=== PATIENT | male | born 1960 | race Caucasian/White ===

== ENCOUNTER 2018-04-22 06:58 | Day surgery (SDC) | payer OTHER, MEDICAID ==
[~2018-04-22 06:58] MED LIST: SOD CHLORIDE 0.9% 1,000 ML IV
[2018-04-22] MEDS ORDERED: PROPOFOL 200 MG INJ (07:00)
[2018-04-22] MEDS ORDERED: ONDANSETRON 4 MG INJ (07:00)
[2018-04-22] MEDS ORDERED: SUCCINYLCHOLINE CHLORIDE 100 MG/5 ML SYG IV (07:00)
[2018-04-22] MEDS ORDERED: LIDOCAINE 2% (SDV) 5 ML INJ (07:00)
[2018-04-22] MEDS ORDERED: ROCURONIUM 50 MG INJ (07:00)
[2018-04-22] MEDS: CEFAZOLIN 2 GM/50 ML (PMX) 50 ML IVPB ×2 (08:00→12:15)
[2018-04-22] MEDS: SOD CHLORIDE 0.9% 1,000 ML IV (08:00)
[2018-04-22] MEDS ORDERED: FENTAnyl 50 MCG/ML VIAL (09:13)
[2018-04-22] MEDS ORDERED: MIDAZOLAM 1 MG/ML 2 ML INJ (09:14)
[2018-04-22] MEDS ORDERED: CEFAZOLIN 1 GM INJ (09:15)
[2018-04-22] MEDS ORDERED: ROPIVACAINE 0.5 % 30 ML VIAL (09:16)
[2018-04-22] MEDS ORDERED: METOCLOPRAMIDE 10 MG INJ (09:16)
[2018-04-22] MEDS ORDERED: EPINEPHrine 1 MG INJ (09:19)
[2018-04-22 09:23] LABS: ADD MAN DIFF? NO
[2018-04-22 09:26] LABS: WHITE BLOOD COUNT 8.1 10^3/ul (4.8-10.8)
[2018-04-22 09:26] LABS: BASOPHILS % 0.5 % (0.0-2.0); EOSINOPHILS # 0.2 10^3/ul (0.0-0.5); HEMATOCRIT 44.7 % (42.0-52.0); HEMOGLOBIN 14.8 g/dl (14.0-18.0); LYMPHOCYTES # 2.1 10^3/ul (0.8-2.9); LYMPHOCYTES % 25.6 % (15.0-51.0); MEAN CORPUSCULAR HGB CONC 33.1 g/dl (32.0-37.0); MEAN CORPUSCULAR VOLUME 87.6 fl (82.0-101.0); MONOCYTE # 0.6 10^3/ul (0.3-0.9); MONOCYTES % 6.9 % (0.0-11.0); NEUTROPHIL # 5.1 10^3/ul (1.6-7.5); NEUTROPHILS % 63.1 % (39.0-77.0); PLATELET COUNT 210 10^3/UL (140-415); RED CELL DISTRIBUTION WIDTH 15.2 % (11.5-14.5)
[2018-04-22 09:45] LABS: ALANINE AMINOTRANSFERASE 57 IU/L (13-69); ALBUMIN 3.7 g/dl (3.3-4.9); ALBUMIN/GLOBULIN RATIO 1.02; ALKALINE PHOSPHATASE 106 IU/L (42-121); ANION GAP 11 (8-16); ASPARTATE AMINO TRANSFERASE 42 IU/L (15-46); BILIRUBIN,INDIRECT 0.5 mg/dl (0-1.1); BILIRUBIN,TOTAL 0.5 mg/dl (0.2-1.3); BLOOD UREA NITROGEN 15 mg/dl (7-20); CALCIUM 8.7 mg/dl (8.4-10.2); CARBON DIOXIDE 28 mmol/L (21-31); CHLORIDE 107 mmol/L (97-110); GLUCOSE 135 mg/dl (70-220); INR 0.93; POTASSIUM 3.6 mmol/L (3.5-5.1); PROTIME 12.6 Sec (11.9-14.9); SODIUM 142 mmol/L (135-144); TOTAL PROTEIN 7.3 g/dl (6.1-8.1)
[2018-04-22 09:46] LABS: PARTIAL THROMBOPLASTIN TIME 31.5 Sec (25.0-35.0)
[2018-04-22] MEDS ORDERED: SUGAMMADEX SODIUM 200 MG/2 ML VIAL IV (10:01)
[2018-04-22] MEDS ORDERED: DIPHENHYDRAMINE 50 MG INJ IV (10:30)
[2018-04-22] MEDS ORDERED: HYDROmorphONE 1 MG/5 ML IV SYRINGE IV (10:30)
[2018-04-22] MEDS ORDERED: hydrALAzine 20 MG INJ IV (10:30)
[2018-04-22] MEDS ORDERED: FENTAnyl 50 MCG/ML VIAL IV (10:30)
[2018-04-22] MEDS ORDERED: LEVALBUTEROL (NEB) 1.25 MG/0.5 ML AMP HHN (10:30)
[2018-04-22] MEDS ORDERED: IPRATROPIUM (NEB) 0.5 MG/2.5 ML AMP HHN (10:30)
[2018-04-22] MEDS ORDERED: LABETALOL HCL 20MG INJ IV (10:30)
[2018-04-22] MEDS: BUPIVACAINE 0.25% (MPF) 30 ML INJ (11:28)
[2018-04-22] MEDS ORDERED: HYDROCODONE/APAP (5/325) TAB PO (11:30)
[2018-04-22] MEDS: MEPERIDINE 25 MG INJ IV (12:12)
[2018-04-22] MEDS: HYDROmorphONE 1 MG/5 ML IV SYRINGE IV ×2 (12:14→12:21)
[2018-04-22] MEDS: ONDANSETRON 4 MG INJ IV (12:15)
[2018-04-22] MEDS: FENTAnyl 50 MCG/ML VIAL IV (12:50)
== END 2018-04-22 15:45 | disposition home or self-care (01) ==
LOC: SDS 06:58
DX: K80.10 Calculus of gallbladder with chronic cholecystitis without obstruction (principal); E11.9 Type 2 diabetes mellitus without complications; I10 Essential (primary) hypertension
CPT/HCPCS: 47562; 80053; 82962; 85025; 85610; 85730; 88304